=== PATIENT | female | born 1945 | race Caucasian/White ===

== ENCOUNTER 2025-05-27 09:28 | Emergency (ER) | payer MEDICARE, OTHER, SELFPAY ==
[2025-05-27 09:38] VITALS: BP 110/78
[2025-05-27] MEDS: XANAX 0.25 MG PO (12:07)
--- NOTE | 2025-05-27 12:41 | ED.GENMED ---
History of Present Illness
General
Chief Complaint: Anxiety
Time Seen by Provider: 05/27/25 11:24
History of Present Illness
History of Present Illness:
79-year-old female presents to the emergency department for evaluation of panic anxiety related to her 's ongoing health issues. She states for the past several weeks she has been essentially unable to function , has been sleeping excessive
amount recently, not able to enjoy her normal activities. states she has been having panic attacks while driving. Her Effexor dose was recently doubled but she feels this is not helping. Her primary care physician declined to offer her
any short-term anxiolysis. She is also hopeful to receive resources for outpatient therapy
Review of Systems
Review of Systems
Allergies reviewed?: Yes
All Other Systems: ROS reviewed and negative except as documented in HPI and ROS
Phy Exam
Physical Exam
Physical Exam:
GEN: Well appearing, NAD, WDWN
HEENT: Oral mucosa moist, no scleral icterus
Cardiac: Regular rate
Lung: No respiratory distress, no tachypnea
MSK: No gross deformity or injuries
Skin: Good color, no pallor or jaundice, no rashes
Neuro: AO x3, moves all extremities freely
Psych: Tremulous, restless anxious
Course
Orders/Labs/Results
Orders:
Orders
05/27/25 11:43
Alprazolam [Xanax] 0.25 mg PO NOW STA
Vital Signs
Initial and Last Documented VS:
Initial Vital Signs
Temp Pulse Resp BP Pulse Ox
97.5 F 104 20 110/78 98
05/27/25 09:38 05/27/25 09:38 05/27/25 09:38 05/27/25 09:38 05/27/25 09:38
Last Documented Vital Signs
Temp Pulse Resp BP Pulse Ox
97.5 F 104 20 110/78 98
05/27/25 09:38 05/27/25 09:38 05/27/25 09:38 05/27/25 09:38 05/27/25 12:41
MDM/Problems Addressed
MDM/Problems Addressed:
Patient has no SI or HI at this does not need crisis services. She does not wish to seek out inpatient hospitalization. Provided with list of outpatient crisis resources for follow-up and will prescribe a short term amount of alprazolam for acute
relief
*Pulse Oximetry
SaO2: 98
Oxygen Mode of Delivery: Room air
Patient hypoxic: no
*Critical Care Note
Total Time (30-74mins, 75-104mins- exclusive of procedures): Not Applicable
ED Attending Note
-
Portions of this chart may have been created with voice recognition software.� Occasional wrong word or��sound alike� substitutions may have occurred due to the inherent limitations of voice recognition software.
Discharge Plan
Departure
Patient Disposition: Home (Routine Discharge)
Date of Disposition: 05/27/25
Time of Disposition: 12:41
Patient with high blood pressure during this ER visit?: No
Discharge Problem:
Anxiety
Instructions: Panic Disorder (DC)
Prescriptions:
New
alprazolam 0.25 mg tablet
0.25 mg PO BID-TID PRN (Reason: anxiety) Qty: 10 0RF
Referrals:
Nikolas Cleveland MD [Family Provider, Family Practice]
Interventions
Interventions:
*Risk Screen - Suicide Last Done: 05/27/25 09:42
*Nursing Disposition Last Done: 05/27/25 12:55
ED-Psychological Assessment Last Done: 05/27/25 12:09
Discharge Date and Time
Discharge Date/Time: 05/27/25 12:55
Print Language: INDONESIAN
== END 2025-05-27 12:55 | disposition home or self-care (01) ==
LOC: EMR 09:28
PROVIDERS: EMERGENCY PHYSICIAN Emergency Medicine; FAMILY PHYSICIAN Family Medicine
DX: F41.9 Anxiety disorder, unspecified (principal); Z63.79 Other stressful life events affecting family and household
CPT/HCPCS: 99283